=== PATIENT | male | born 1955 | race Caucasian/White ===

== ENCOUNTER 2020-04-30 12:22 | Emergency (ER) | payer MEDICARE ==
[2020-04-30 13:24] LABS: BASOPHIL 0.3 % (0-2); EOSINOPHIL 2.4 % (0-7); HCT 41.4 % (42.0-52.0); HGB 14.5 g/dl (13.2-18.0); LYMPHOCYTE 23.3 % (15-48); MCH 30.4 pg (25.0-31.0); MCV 86.8 fL (78.0-100.0); MONOCYTE 9.7 % (0-12); MPV 9.1 fL (6.0-9.5); NRBC 0; PLT 172 K/uL (150-400); RBC 4.77 M/uL (4.70-6.00); RDW 12.2 % (11.5-14.0); WBC 3.3 K/uL (4.0-10.5)
[2020-04-30 14:04] LABS: BILIRUBIN - TOTAL 0.4 mg/dL (0.2-1.0); BUN/CREAT RATIO (CALC) 14.8 RATIO; CREATININE 0.54 mg/dL (0.67-1.17); GLOBULIN (CALCULATION) 3.3 g/dL; POTASSIUM 3.6 mmol/L (3.5-5.1); TOTAL PROTEIN 7.3 g/dL (6.4-8.2)
[2020-04-30 14:46] LABS: BILIRUBIN NEGATIVE (NEGATIVE); BLOOD NEGATIVE Ery/uL (NEGATIVE); CLARITY CLEAR (CLEAR); COLOR YELLOW (YELLOW); GLUCOSE (U) NORMAL (NORMAL); LEUKOCYTES NEGATIVE Leu/uL (NEGATIVE); NITRITE NEGATIVE (NEGATIVE); PROTEIN NEGATIVE (NEGATIVE); SPECIFIC GRAVITY 1.015 (1.001-1.030); UROBILINOGEN 0.2 mg/dL (0.2-1.0)
== END 2020-04-30 19:29 | disposition home or self-care (01) ==
LOC: FER 12:22
PROVIDERS: Nurse Practitioner Family
DX: U07.1 COVID-19 (principal); J43.9 Emphysema, unspecified; J92.0 Pleural plaque with presence of asbestos; I10 Essential (primary) hypertension; Z87.891 Personal history of nicotine dependence
CPT/HCPCS: 36415; 71046; 71260; 80053; 81003; 82728; 83605; 84145; 85025; 85379; J7030; J7050; Q9967; U0002